=== PATIENT | male | born 1985 | race Two or more races ===

== ENCOUNTER 2025-07-01 18:48 | Emergency (ER) | payer OTHER ==
[~2025-07-01] VITALS: Ht 177.8 cm; Wt 126.2 kg
--- NOTE | 2025-07-01 19:44 | ED.PDOC ---
History of Present Illness HPI Comments 39 y/o obese M presents with c/c of nonradiating, epigastric abdominal pain. Patient reports 1x week history of intermittent pain, that worsens whenever in a laying position for prolong periods of time. No endorsed recent ailments, sick contacts, spoiled or spice food consumption, injuries, or any pertinent medical, surgical, family, or social history. Patient denies on having any nausea, vomiting, diarrhea, constipation, urinary problems, or further acute symptoms. Chief Complaint: Abdominal Pain Time Seen by MD: 19:30 Reviewed Notes: Nurses Notes, Medications, Allergies Allergies: Coded Allergies: NO KNOWN ALLERGIES (Unverified , 07/01/25) Home Meds Active Scripts Sucralfate (CARAFATE SUSP) 1 Gm/10 Ml Ss, 10 ML PO BID, #1200 ML 3 Refills Prov:RUKHSANA SALAZAR MD 07/01/25 Ondansetron HCl (Ondansetron Hydrochloride) 8 Mg Tab, 8 MG PO Q6HP PRN, #30 TAB Prov:RUKHSANA SALAZAR MD 07/01/25 Famotidine (PEPCID TABLET) 20 Mg Tb, 1 TAB PO BID PRN, #180 TAB 3 Refills Prov:RUKHSANA SALAZAR MD 07/01/25 Information Source: Patient Mode of Arrival: Ambulatory Severity: Moderate Timing: Days Duration: Intermittent Prehospital treatment: None Past Medical History PAST MEDICAL HISTORY: Denies Surgical History: Denies all surgeries Family History Family History: Unknown Social History Smoker: Non-Smoker Alcohol: Denies ETOH Use Drugs: Denies Drug Use Lives In: Home All Other Systems: Reviewed and Negative (As per HPI) Physical Exam General Appearance: No Apparent Distress, Obese HEENT: Normal ENT Inspection, Pharynx Normal, TMs Normal Neck: Full Range of Motion, Non-Tender, Normal, Normal Inspection Respiratory: Chest Non-Tender, Lungs Clear, No Accessory Muscle Use, No Respiratory Distress, Normal Breath Sounds Cardiovascular: No Edema, No JVD, No Murmur, No Gallop, Normal Peripheral Pulses, Regular Rate/Rhythm Breast Exam: Deferred Gastrointestinal: Epigastric (tenderness ), No Organomegaly, No Pulsatile Mass, Normal Bowel Sounds, Soft, Tenderness (epigastric region ) Genitalia: Deferred Pelvic: Deferred Rectal: Deferred Extremities: No calf tenderness, Normal capillary refill, Normal inspection, Normal range of motion, Non-tender, No pedal edema Musculoskeletal : Apperance: Normal Neurologic: Alert, assistant chief of police II-XII nml as Tested, No Motor Deficits, Normal Affect, Normal Mood, No Sensory Deficits Cerebellar Function: Normal Reflexes: Normal Skin: Dry, Normal Color, Warm Lymphatic: No Adenopathy Was a procedure done? Was a procedure done?: No Differential Dx Considerations may include: Gastritis, gastroenteritis, GERD, PUD, viral, among others X-Ray, Labs, Meds, VS Vital Signs Date Time Temp Pulse Resp B/P (MAP) Pulse Ox O2 Delivery O2 Flow Rate FiO2 07/01/25 21:00 84 17 95 Room Air 07/01/25 21:00 98.6 84 17 128/71 (90) 95 98.6 07/01/25 18:50 97.4 85 18 136/79 97 97.4 Lab Test 07/01/25 19:37 07/01/25 19:20 Range/Units White Blood Count 13.2 H 4.4-10.8 10^3/uL Red Blood Count 5.05 4.5-5.90 10^6/uL Hemoglobin 15.2 13.5-17.5 g/dL Hematocrit 44.0 41.0-53.0 % Mean Corpuscular Volume 87.2 80.0-100.0 fL Mean Corpuscular Hemoglobin 30.2 28.0-32.0 pg Mean Corpuscular Hemoglobin Concent 34.6 32.0-36.0 g/dL Red Cell Distribution Width 13.4 11.8-14.3 % Platelet Count 371 140-450 10^3/uL Mean Platelet Volume 7.4 6.9-10.8 fL Neutrophils (%) (Auto) 68.4 37.0-80.0 % Lymphocytes (%) (Auto) 21.2 10.0-50.0 % Monocytes (%) (Auto) 7.8 0.0-12.0 % Eosinophils (%) (Auto) 1.6 0.0-7.0 % Basophils (%) (Auto) 1.0 0.0-2.0 % Neutrophils # (Auto) 9.0 H 1.6-8.6 10 ^3/uL Lymphocytes # (Auto) 2.8 0.4-5.4 10 ^3/uL Monocytes # (Auto) 1.0 0-1.3 10 ^3/uL Eosinophils # (Auto) 0.2 0-0.8 10 ^3/uL Basophils # (Auto) 0.1 0-0.2 10 ^3/uL Nucleated Red Blood Cells 0.1 % Sodium Level 140 136-145 mmol/L Potassium Level 4.2 3.5-5.1 mmol/L Chloride Level 103 98-107 mmol/L Carbon Dioxide Level 28 20-31 mmol/L Anion Gap 9 5-15 Blood Urea Nitrogen 18 9-23 mg/dL Creatinine 1.09 0.700-1.30 mg/dL Glomerular Filtration Rate Calc 89 >90 mL/min BUN/Creatinine Ratio 16.5 10.0-20.0 Serum Glucose 105 74-106 mg/dL Calcium Level 9.5 8.7-10.4 mg/dL Total Bilirubin 0.2 0.2-1.0 mg/dL Aspartate Amino Transferase (AST) 22 13-40 U/L Alanine Aminotransferase (ALT) 40 7-40 U/L Alkaline Phosphatase 104 46-116 U/L Total Protein 7.6 5.7-8.2 g/dL Albumin 4.5 3.2-4.8 g/dL Lipase 43 12-53 U/L Urine Color Yellow Yellow Urine Clarity Clear Clear Urine pH 5.5 5.0-9.0 Urine Specific Wing 1.031 1.001-1.035 Urine Protein Negative Negative Urine Ketones Negative Negative Urine Blood 3+ H Negative /uL Urine Nitrite Negative Negative Urine Bilirubin Negative Negative Urine Urobilinogen Normal Negative mg/dL Urine Leukocyte Esterase Negative Negative /uL Urine RBC 5 0 - 3 /hpf Urine Microscopic WBC 1 0-3 /HPF Urine Squamous Epithelial Cells None seen <5 /hpf Urine Bacteria None seen None Seen /hpf Urine Mucus Few None Seen Urine Glucose Normal Normal mg/dL Current Medications Medications (Trade) Dose Ordered Sig/Bonita Route Start Time Stop Time Status Last Admin Ondansetron HCl (Zofran Po) 4 mg ONCE ONCE PO 07/01/25 19:30 07/01/25 19:33 DC 07/01/25 20:56 Al Hydrox/Mg Hydrox/Simethicone (Maalox Plus) 30 ml ONCE ONCE PO 07/01/25 19:30 07/01/25 19:33 DC 07/01/25 20:56 Famotidine (Pepcid Tablet) 20 mg ONCE ONCE PO 07/01/25 19:30 07/01/25 19:33 DC 07/01/25 20:57 Time of 1ST Reevaluation: 20:00 Reevaluation 1ST: Unchanged Patient Education/Counseling: Diagnosis, Treatment, Need For Follow Up Family Education/Counseling: No Family Present SEPSIS Sepsis Screen Date sepsis recognized/suspect: Jul 01, 2025 Time Sepsis recognized/suspect: 1852 Recent Procedure: No On Antibiotic Therapy: No Respiratory Rate >20: No Heart Rate >90: No Temp<36 C (96.8 F) or >38.3 C: No SBP <90 or MAP <65 mmHG: No New Acute Mental Status Change: No Is the patient on CPAP, BIPAP,: No Physician Orders Gallbladder (07/01/25 19:30) Electrocardigram (07/01/25 19:30) Vital Signs Date Time Temp Pulse Resp B/P (MAP) Pulse Ox O2 Delivery O2 Flow Rate FiO2 07/01/25 21:00 84 17 95 Room Air 07/01/25 21:00 98.6 84 17 128/71 (90) 95 98.6 07/01/25 18:50 97.4 85 18 136/79 97 97.4 Laboratory Tests Test 07/01/25 19:37 White Blood Count 13.2 10^3/uL (4.4-10.8) H Medications Medications Dose Ordered Sig/Bonita Route Start Time Stop Time Status Last Admin Dose Admin Al Hydrox/Mg Hydrox/Simethicone 30 ml ONCE ONCE PO 07/01/25 19:30 07/01/25 19:33 DC 07/01/25 20:56 Famotidine 20 mg ONCE ONCE PO 07/01/25 19:30 07/01/25 19:33 DC 07/01/25 20:57 Ondansetron HCl 4 mg ONCE ONCE PO 07/01/25 19:30 07/01/25 19:33 DC 07/01/25 20:56 Departure 1 Departure Time of Disposition: 21:30 Impression: Primary Impression: Epigastric pain Disposition: 01 HOME / SELF CARE / HOMELESS Condition: Stable e-Prescriptions Sucralfate (CARAFATE SUSP) 1 Gm/10 Ml Ss 10 ML PO BID, #1200 ML 3 Refills Prov: RUKHSANA SALAZAR MD 07/01/25 Ondansetron HCl (Ondansetron Hydrochloride) 8 Mg Tab 8 MG PO Q6HP PRN, #30 TAB Prov: RUKHSANA SALAZAR MD 07/01/25 Famotidine (PEPCID TABLET) 20 Mg Tb 1 TAB PO BID PRN, #180 TAB 3 Refills Prov: RUKHSANA SALAZAR MD 07/01/25 Discharged With: Self Critical Care Note Critical Care Time?: No Stability Stability form required: No Heart Score Heart Score: Heart Score Response (Comments) Value History N/A 0 EKG N/A 0 Age N/A 0 Risk Factors N/A 0 Troponin N/A 0 Total 0 I personally scribed for RUKHSANA SALAZAR MD ([email or web address]) on 07/01/25 at 19:44. Electronically submitted by Alexsander López [email or web address]). RUKHSANA SALAZAR MD Jul 01, 2025 19:44
[2025-07-01 19:50] LABS: Hematocrit 44.0 % (41.0-53.0); Hemoglobin 15.2 g/dL (13.5-17.5); Mean Corpuscular Hemoglobin 30.2 pg (28.0-32.0); Mean Corpuscular Volume 87.2 fL (80.0-100.0); Nucleated Red Blood Cells % 0.1 %
[2025-07-01 20:10] LABS: Alanine Aminotransferase 40 U/L (7-40); Albumin 4.5 g/dL (3.2-4.8); Alkaline Phosphatase 104 U/L (46-116); Anion Gap 9 (5-15); BUN/Creatinine Ratio 16.5 (10.0-20.0); Blood Urea Nitrogen 18 mg/dL (9-23); Calcium 9.5 mg/dL (8.7-10.4); Carbon Dioxide 28 mmol/L (20-31); Chloride 103 mmol/L (98-107); Glucose 105 mg/dL (74-106); Lipase 43 U/L (12-53); Potassium 4.2 mmol/L (3.5-5.1); Sodium 140 mmol/L (136-145); Total Protein 7.6 g/dL (5.7-8.2)
[2025-07-01 20:12] LABS: Bilirubin, Total 0.2 mg/dL (0.2-1.0)
[2025-07-01 20:34] LABS: Urine Protein, UAD Negative (Negative)
--- NOTE | 2025-07-01 20:48 | DVH ---
INDICATION: RUQ pain TECHNIQUE: Multiple real-time sonographic images of the abdomen were obtained. COMPARISON: None FINDINGS: The liver is homogenous in echogenicity. The liver measures 16.7 cm. No intrahepatic biliary ductal dilatation is noted. The gallbladder wall measures 0.18 cm and is unremarkable. No gallstones or sludge is seen. The common duct measures 0.55 cm and is unremarkable. No pericholecystic fluid is noted. Negative sonographic Rutledge's sign The right kidney measures 9.5 cm. No hydronephrosis. The pancreas is not well visualized due to obscuration from bowel gas. The visualized portions of the IVC and aorta are grossly unremarkable. IMPRESSION: 1. Gallbladder appears normal with no cholelithiasis or gallbladder wall thickening. Negative sonographic rutledge's sign is elicited. 2. Right kidney measures 9.5 cm in length and there is no nephrolithiasis or hydronephrosis 3. Liver measures 16.7 cm in length with normal parenchymal findings.
[2025-07-01] MEDS: MAALOX PLUS or MAALOX 30 ML PO ONE (20:56)
[2025-07-01] MEDS: ONDANSETRON ODT 4 MG TAB PO ONE (20:56)
[2025-07-01] MEDS: FAMOTIDINE 20 MG TAB PO ONE (20:57)
[2025-07-01 21:00] VITALS: BP 128/71; PULSE 84; RESP 17; TEMP 98.6; O2SAT 95
[2025-07-01] MEDS ORDERED: ONDA-180 PO (21:29)
[2025-07-01] MEDS ORDERED: FAMO20TA10 PO (21:29)
[2025-07-01] MEDS ORDERED: SUCR1SUS26 PO (21:29)
== END 2025-07-01 21:54 | disposition home or self-care (01) ==
LOC: ER 18:48
DX: R10.13 Epigastric pain (principal); Z79.899 Other long term (current) drug therapy
CPT/HCPCS: 36415; 76705; 80053; 81001; 83690; 85025; 99284; Q0162